=== PATIENT | male | born 1945 | race Two or more races ===

== ENCOUNTER → 2024-08-18 | Outpatient (CLI) | payer MEDICARE, MEDICAID, SELFPAY ==
[2024-08-18 17:34] LABS: B-Type Natriuretic Peptide 112 pg/mL (0-100)
[2024-08-18 17:35] LABS: Alanine Aminotransferase 27 U/L (10-49); Albumin, Serum 4.2 gm/dL (3.4-4.8); Albumin/Globulin Ratio 1.4 (1.2-2.2); Alkaline Phosphatase 207 U/L (46-116); Anion Gap 9 (7-16); Aspartate Amino Transferase 33 U/L (0-34); BUN/Creatinine Ratio 13 Ratio (12-20); Bilirubin,Total 0.3 mg/dL (0.3-1.2); Blood Urea Nitrogen 12 mg/dL (9-23); Calcium 9.2 mg/dL (8.3-10.6); Calcium (Corrected) 9.2 mg/dL (8.5-10.1); Carbon Dioxide 20.6 mMol/L (20.0-31.0); Chloride 100 mMol/L (98-107); Creatinine (Component) 0.9 mg/dL (0.6-1.3); Globulin 3.1 gm/dL (2.3-3.5); Glucose 82 mg/dL (74-106); Magnesium 1.7 mg/dL (1.6-2.6); Osmolality,Calculated 259 (275-295); Potassium 4.8 mMol/L (3.4-5.1); Sodium 130 mMol/L (136-145); Total Protein 7.3 gm/dL (5.7-8.2); eGFR > 60 See Note
== END | disposition home or self-care (01) ==
PROVIDERS: PCP Family Medicine; Referring Provider Internal Medicine Cardiovascular Disease; Visit Provider Internal Medicine Cardiovascular Disease
DX: I50.33 Acute on chronic diastolic (congestive) heart failure (principal)
CPT/HCPCS: 36415; 80053; 83735; 83880

== ENCOUNTER 2024-12-15 18:25 | Emergency (ER) | payer MEDICARE, MEDICAID, SELFPAY ==
[2024-12-15 18:26] VITALS: BMI 25.8
[2024-12-15 18:47] VITALS: BP 127/80; PULSE 102; RESP 20; TEMP 36.9; O2SAT 97
--- NOTE | 2024-12-15 18:51 | EKG_ITS ---
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
--- NOTE | 2024-12-15 18:51 | XR_ITS ---
Examination: AP chest single view TECHNIQUE: AP portable sitting chest single view Date and time: December 15, 2024 1914 hours Comparison June 11, 2024 INDICATIONS: Coughing 2 weeks. FINDINGS: Early pneumonia left base retrocardiac Normal heart size Right lung clear IMPRESSION: Early pneumonia left base
--- NOTE | 2024-12-15 18:52 | PD.EDRME ---
Rapid Medical Screening Exam [facility] Arrival date/time: 12/15/24 18:25 Chief Complaint: Flu Like Symptoms Vital signs: Vital Signs Temperature 98.5 F 12/15/24 18:47 Pulse Rate 102 H 12/15/24 18:47 Respiratory Rate 20 12/15/24 18:47 Blood Pressure 127/80 12/15/24 18:47 Pulse Oximetry (%) 97 12/15/24 18:47 Oxygen Delivery Method Room Air 12/15/24 18:47 [facility] Narrative: Congestion, cough, body aches, chest pain x 2 weeks
[2024-12-15 19:33] LABS: Basophils # (Auto) 0.1 Thou/mm3 (0.0-0.2); Basophils % (Auto) 1 % (0-2.5); Eosinophils # (Auto) 0.2 Thou/mm3 (0.0-0.5); Eosinophils % (Auto) 3 % (0-10); Hematocrit 31.7 % (41.0-53.0); Hemoglobin 10.6 g/dL (13.5-16.0); Immature Granulocytes % (Auto) 1 % (0-0); Immature Granulocytes Auto 0.05 Thou/mm3 (0.00-0.00); Lymphocytes % (Auto) 12 % (10-50); Mean Corpuscular HGB Conc 33.4 g/dl (31.0-37.0); Mean Corpuscular Hemoglobin 23.7 pg (25.0-35.0); Mean Corpuscular Volume 71 fL (80-100); Monocytes # (Auto) 0.8 Thou/mm3 (0.0-0.8); Monocytes % (Auto) 10 % (0-12); Neutrophils # (Auto) 5.7 Thou/mm3 (1.8-7.7); Neutrophils % (Auto) 73 % (37-80); Nucleated Red Blood Cell % 0 /100 WBC (0); Platelet Count 373 Thou/mm3 (140-440); RDW Standard Deviation 48.5 fL (35.1-43.9); Red Blood Count 4.48 Miln/mm3 (4.50-5.90); White Blood Count 7.8 Thou/mm3 (3.8-10.6)
[2024-12-15 19:46] LABS: B-Type Natriuretic Peptide 68 pg/mL (0-100)
[2024-12-15 20:04] LABS: Alanine Aminotransferase 14 U/L (10-49); Albumin, Serum 4.1 gm/dL (3.4-4.8); Albumin/Globulin Ratio 1.4 (1.2-2.2); Alkaline Phosphatase 205 U/L (46-116); Anion Gap 11 (7-16); Aspartate Amino Transferase 22 U/L (0-34); BUN/Creatinine Ratio 9 Ratio (12-20); Bilirubin,Total 0.3 mg/dL (0.3-1.2); Blood Urea Nitrogen 9 mg/dL (9-23); Calcium 9.2 mg/dL (8.3-10.6); Calcium (Corrected) 9.2 mg/dL (8.5-10.1); Carbon Dioxide 19.4 mMol/L (20.0-31.0); Chloride 98 mMol/L (98-107); Estimated Creatinine Clearance 59.9 mL/min (>60); Globulin 2.9 gm/dL (2.3-3.5); Glucose 119 mg/dL (74-106); Osmolality,Calculated 256 (275-295); Potassium 3.8 mMol/L (3.4-5.1); Sodium 128 mMol/L (136-145); Troponin I < 0.020 ng/mL (0.0-0.045); eGFR > 60 See Note
[2024-12-15 23:45] VITALS: BP 108/70; PULSE 101; RESP 18; O2SAT 99
--- NOTE | 2024-12-16 00:02 | PD.EDURI ---
Upper Respiratory Inf. RME/HPI General Chief Complaint: Flu Like Symptoms Stated Complaint: CHEST PAIN X4 DAYS WITH COUGH & FEVER Time Seen by Provider: 12/15/24 18:53 Arrival date/time: 12/15/24 18:25 RME / HPI RME / HPI Narrative: Congestion, cough, body aches, chest pain x 2 weeks [address]. Ocampo?s Main ED Evaluation: 79yo male presents to the ED for complaints of fever, cough, and sharp back pain. 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 Patient has had his symptoms for the last 2 weeks per daughter. Also complains of chronic abdominal cramping. Patient denies any N/V/D, constipation, chest pain or any other associated symptoms. Related Data Home Medications ?Medication ?Instructions ?Recorded ?Confirmed aspirin 81 mg tablet,delayed 81 mg PO QDAY 04/28/21 06/10/24 release (Cortes Low Dose Aspirin) furosemide 20 mg tablet 20 mg PO DAILY 06/21/22 06/10/24 megestrol 400 mg/10 mL (40 mg/mL) 40 mg PO DAILY 08/31/22 06/10/24 oral suspension duloxetine 20 mg capsule,delayed 20 mg PO HS 05/19/24 06/10/24 release famotidine 40 mg tablet 40 mg PO DAILY 05/19/24 06/10/24 pregabalin 50 mg capsule 50 mg PO BID 05/19/24 06/10/24 sucralfate 1 gram tablet 1 g PO BID 05/19/24 06/10/24 ferrous sulfate 325 mg (65 mg 325 mg PO BID 06/10/24 06/10/24 iron) tablet metoclopramide HCl 10 mg tablet 10 mg PO TID PRN Nausea And 06/10/24 06/10/24 Vomiting rosuvastatin 5 mg tablet 5 mg PO QDAY 06/10/24 06/10/24 Previous Rx's ?Medication ?Instructions ?Recorded acetaminophen 500 mg tablet 1,000 mg (2 x 500 mg) PO Q6H PRN 12/16/24 fever or pain #30 tabs azithromycin 250 mg tablet 250 mg PO QDAY Community-acquired 12/16/24 (Zithromax) pneumonia 4 days #4 tabs dicyclomine 10 mg capsule 10 mg PO BID PRN Abdominal cramps 12/16/24 #14 caps Allergies Allergy/AdvReac Type Severity Reaction Status Date / Time No Known Allergies Allergy Verified 12/15/24 18:29 Review of Systems Review of Systems Systems Reviewed: All systems reviewed, normal except as documented Past Medical History Past Medical History NEUROLOGIC: Negative Neurological Disorders, Cerebrovascular Accident, Transient Ischemic Attacks (TIA), Dementia, Alzheimer's Disease, Parkinson's Disease, Brain Tumor, Meningitis, Seizures, Epilepsy, Multiple Sclerosis, Cerebral Palsy, Amyotrophic Lateral Sclerosis (ALS/Florence Gehrig's), Guillain-[place] Syndrome, Spina Bifida, Paralysis, Peripheral Neuropathy, Bauman's Palsy, Subdural Hematoma, Migraine, Head Trauma, Spinal Cord Injury or Traumatic Brain Injury CARDIAC: Positive Hypertension and Hypotension; Negative Cardiac Disorders or Congestive Heart Failure RESPIRATORY: Positive Bronchitis and Pneumonia; Negative Chronic Obstructive Pulmonary Disease (COPD), Asthma or Sleep Apnea GASTROINTESTINAL: Positive Gastrointestinal Disorders, Colitis, Ulcerative Colitis and Gastroesophageal Reflux Disease; Negative Hepatitis GENITOURINARY: Negative Genitourinary Disorders or Renal Disease REPRODUCTIVE: Negative Breast Cancer MUSCULOSKELETAL: Positive Musculoskeletal Disorders and Arthritis ENT: Positive Cataracts; Negative Head Trauma ENDOCRINE: Positive Endocrine Disorders and Diabetes Mellitus Type 2 (Pt reports that he does not take any med for DM); Negative Diabetes Mellitus Type 1 HEMATOLOGIC: Positive Anemia; Negative Blood Disorders or Sickle Cell Disease OTHER HISTORY: Positive Hospitalization; Negative Autoimmune Disease, Shingles, Falls, Blood Transfusions, Anesthesia Reactions, Organ Transplant, Chemotherapy, Radiation Therapy, MRSA, Clostridium Difficile, Cancer or Breast Cancer Family History FAMILY HISTORY: Negative Family Psychiatric Problems, Family Respiratory Disorders, Family Cardiac Disorders, Family Gastrointestinal Problems, Family Cancer, Family Surgery or Family Anesthesia Reaction Surgical History SURGICAL: Negative Cardiac Surgery, Endocrine Surgery, Ear Surgery, Abdominal Surgery, Nephrectomy, Joint Replacement, Neurologic Surgery, Mastectomy, Vasectomy or Organ Transplant Social History SMOKING STATUS: Light (< 1 pack/day) SECOND HAND EXPOSURE: No SUBSTANCE USE: does not use ED Exam Narrative Physical exam: GENERAL APPEARANCE: alert and oriented x 4, well-developed, well-nourished, no acute distress VITALS: All vitals were reviewed and the pulse ox is 99% on room air, which is normal according to my interpretation. HEENT: Normocephalic, atraumatic; pupils equal, round, reactive to light; EOMI; mucous membranes pink, moist; oropharynx clear NECK: Supple LUNGS: CTABL; no wheezes, no rales, no rhonchi HEART: Regular rate, regular rhythm; normal S1, S2; no murmurs ABDOMEN: non distended; normal BS; soft, no tenderness, no guarding, no rebound; no masses, no organomegaly, no hernia BACK: no CVA tenderness EXTREMITIES: atraumatic; no edema NEUROLOGIC: awake; alert and oriented x4; cranial nerves II-XII grossly intact; no focal sensory or motor deficits PSYCHIATRIC: appropriate mood and affect SKIN: warm, dry, normal color; no rashes Course Quality Measures none Orders Category Date Time Status Bedside COVID-19 Antigen Test NOW Care 12/15/24 18:51 Active Bedside Influenza A&B Antigen Test NOW Care 12/15/24 18:52 Completed EKG (ED ONLY) *Do not use* NOW Care 12/15/24 18:51 Completed CXR [XR chest 1V] Stat Exams 12/15/24 18:51 Completed EKG (ED Only) Stat Exams 12/15/24 18:51 Draft BNP [B-Type Natriuretic Peptide] Stat Lab 12/15/24 19:11 Completed CBC Stat Lab 12/15/24 19:11 Completed CMP [Comprehensive Metabolic Panel] Stat Lab 12/15/24 19:11 Completed Troponin I Stat Lab 12/15/24 19:11 Completed Azithromycin Po [Zithromax PO] Med 12/16/24 00:10 Discontinued 500 mg PO X1 ONE HYDROcodone*/APAP 5/325 [[place] 5/325] Med 12/16/24 00:21 Discontinued 1 tab PO X1 ONE Vital Signs Vital signs: Vital Signs Temperature 98.5 F 12/15/24 18:47 Pulse Rate 102 H 12/15/24 18:47 Respiratory Rate 20 12/15/24 18:47 Blood Pressure 127/80 12/15/24 18:47 Pulse Oximetry (%) 97 12/15/24 18:47 Oxygen Delivery Method Room Air 12/15/24 18:47 Upper Respiratory Infection MDM Narrative MDM Narrative:: Scribe Attestation: 12/16/24 Steph Duenas am scribing for and in the presence of Dr. Ocampo. Patient data External records reviewed:: [facility] previous records (Per chart review, patient was admitted here on 06/20/24 for acute dehydration.) Clinical information provided by:: patient Social determinants that could affect healthcare access:: none Patient has the following chronic illnesses:: HTN, GERD How is presenting disease/condition affected by chronic disease/condition?: uneffected by Evaluation data The following diagnostics were reviewed and interpreted by me:: lab results, radiology exam(s) and EKG tracing(s) Lab and/or radiology exams considered but not ordered:: none Interpretation Summary: Bedside COVID and Influenza are negative, CBC is normal, Sodium is 128, Glucose is 119, Troponin is normal, BNP is normal, according to my interpretation. EKG done at 1855, NSR with arrhythmia, rate of 93, left axis deviation, PACs, no acute ischemia, according to my interpretation. [facility] Report Signed Patient: FRIDA HERNANDEZ Record#: [id number] Birthdate: 1945 Age/Sex: 79 / M Location: [facility] Attending Dr: Ordering Physician: Hair Raza PA-C Date of Service: 12/15/24 Procedure(s): XR chest 1V Accession Number(s): [id number] cc: Praful Lopez MD; Mikael Peacock MD; Hair Raza PA-C~ Examination: AP chest single view TECHNIQUE: AP portable sitting chest single view Date and time: December 15, 2024 1914 hours Comparison June 11, 2024 INDICATIONS: Coughing 2 weeks. FINDINGS: Early pneumonia left base retrocardiac Normal heart size Right lung clear IMPRESSION: Early pneumonia left base Dictated By: Mikael Peacock MD Signed By: <Electronically signed by Mikael Peacock MD in OV> 12/15/247 Medications / Prescriptions Medications or Prescriptions considered but not ordered:: none Medication administrations:: Medication Administration History Discontinued Medications Hydrocodone Bitart/Acetaminophen (Hydrocodone/Apap 5/325 Tablet) 1 tab PO X1 ONE Stop: 12/16/24 00:22 Last Admin: 12/16/24 00:36 Dose: 1 tab Documented By: KF Azithromycin (Azithromycin 250 Mg Tablet) 500 mg PO X1 ONE Stop: 12/16/24 00:11 Last Admin: 12/16/24 00:21 Dose: 500 mg Documented By: JORGE LUIS see above Consultations Consultation(s) initiated? (list below): No Diagnosis Upper Respiratory Differential Diagnosis: upper respiratory infection, viral infection, influenza and other (pneumonia) Most likely diagnosis given after review of the tests above:: see clinical impression below Admission Indicated Admission indicated?: not indicated Admission Request Was there a request for admission?: No Disposition Plan Disposition Plan: Discharge Discharge Attestation Discharge Attestation: The patient and all family members were given an opportunity to ask questions and understood the discharge instructions. Discharge instructions specifically effects, indications for sooner follow up or return to the emergency department, and the expected course of current diagnosis. Patient condition: Stable Discharge Plan Plan Patient Disposition: HOME (Self Care) Discharge Disposition comment: Stable for discharge home Patient condition on transfer: Stable Prescriptions/Referrals Prescriptions/Med Rec: New azithromycin [Zithromax] 250 mg tablet 250 mg PO QDAY 4 Days Qty: 4 0RF Rx Instructions: Take 1 tab every day for 4 days starting on Sunday 12/17 dicyclomine 10 mg capsule 10 mg PO BID PRN (Reason: Abdominal cramps) Qty: 14 0RF acetaminophen 500 mg tablet 1,000 mg PO Q6H PRN (Reason: fever or pain) Qty: 30 0RF No Action aspirin [Cortes Low Dose Aspirin] 81 mg Tablet,Delayed Release (Dr/Ec) 81 mg PO QDAY megestrol 400 mg/10 mL (40 mg/mL) suspension 40 mg PO DAILY Patient Comments: TOME 10MLS POR VIA ORAL DIARIO sucralfate 1 gram tablet 1 g PO BID Patient Comments: TOME 1 TABLETA POR V A ORAL DOS VECES AL D A EN EST TRIPP VAC O FOR 30 DAYS famotidine 40 mg tablet 40 mg PO DAILY Patient Comments: TOME 1 TABLETA POR V A ORAL TODOS LOS D FOR 30 DAYS duloxetine 20 mg capsule,delayed release(DR/EC) 20 mg PO HS Patient Comments: TOME 1 C PSULA POR V A ORAL TODOS LOS D AL ACOSTARSE POR 30 LEWIS pregabalin 50 mg capsule 50 mg PO BID Patient Comments: TOME 1 C PSULA POR V A ORAL TODOS LOS D metoclopramide HCl 10 mg tablet 10 mg PO TID PRN (Reason: Nausea And Vomiting) Patient Comments: TOME 1 TABLETA POR V A ORAL AJAY VECES AL D A CUANDO SEA NECESARIO PARA LAS N USEAS rosuvastatin 5 mg tablet 5 mg PO QDAY Patient Comments: TOME 1 TABLETA POR V A ORAL TODOS LOS D FOR 90 DAYS ferrous sulfate 325 mg (65 mg iron) tablet 325 mg PO BID furosemide 20 mg tablet 20 mg PO DAILY Patient Comments: TOME IRENE TABLETA TODOS LOS D FOR 30 DAYS Rx Instructions: for 30 days dispense on 06/04/22 Referrals: Praful Lopez MD [Primary Care Provider] - In 1 week Problem List Clinical Impression: Community acquired pneumonia, Abdominal cramping Patient/Caregiver Discharge Instructions Discharge Activity: activity as tolerated Education Materials: ED Pneumonia (Adult) Additional Instructions: Please return to the emergency department for any worsening or any further medical problems and we will help you. Otherwise you should follow-up with your primary care doctor within the next several days There are antibiotics waiting for you at the pharmacy. You should take 1 tab every day for 4 days in a row starting on 12/17/2024 Print Language: Burkinan Stand Alone Forms: Carly Award Info., Patient Portal Info Letter
[2024-12-16] MEDS: AZITHROMYCIN 250 MG TABLET 500 MG PO (00:21)
[2024-12-16] MEDS: HYDROcodone/APAP 5/325 TABLET 1 TAB PO (00:36)
== END 2024-12-16 00:40 | disposition home or self-care (01) ==
PROVIDERS: Physician Assistant; Emergency Provider Emergency Medicine; PCP Family Medicine
DX: J18.9 Pneumonia, unspecified organism (principal); R10.9 Unspecified abdominal pain; I49.1 Atrial premature depolarization; I10 Essential (primary) hypertension
CPT/HCPCS: 36415; 71045; 80053; 83880; 84484; 85025; 87400; 87811; 93005; 99283; A9270

== ENCOUNTER → 2025-01-07 | Outpatient (CLI) | payer MEDICARE, MEDICAID, SELFPAY ==
[2025-01-07 17:44] LABS: Clostridium Difficile PCR Negative (Negative)
== END | disposition home or self-care (01) ==
LOC: SLDO 13:54
PROVIDERS: Referring Provider Internal Medicine Gastroenterology; Visit Provider Internal Medicine Gastroenterology
DX: R19.7 Diarrhea, unspecified (principal)
CPT/HCPCS: 87493

== ENCOUNTER 2025-05-10 17:16 | Emergency (ER) | payer MEDICARE, MEDICAID, SELFPAY ==
[2025-05-10 17:17] VITALS: BP 158/82; PULSE 114; RESP 18; TEMP 36.5; O2SAT 98
[2025-05-10 17:19] VITALS: BMI 25.7
--- NOTE | 2025-05-10 17:23 | EKG_ITS ---
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
[2025-05-10 17:26] VITALS: PULSE 78; RESP 16; O2SAT 98
--- NOTE | 2025-05-10 17:29 | PD.EDADULT ---
ED General RME/HPI General Chief complaint: General Adult/Misc Complain Stated complaint: DIABETIC ISSUE Time Seen by Provider: 05/10/25 17:22 Arrival date/time: 05/10/25 17:16 CC: Hypoglycemia HPI patient presents to the ER via EMS report blood glucose in the low 20s by family, the patient was given chocolate cake and orange juice, EMS said the initial Accu-Chek was 99. Currently the patient's Accu-Chek is 31. 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 Patient is complaining of generalized bodyaches that have been bad for months but worse in the last 2 days. Patient is slow to respond to questions but does eventually respond appropriately. Related Data Home Medications ?Medication ?Instructions ?Recorded ?Confirmed aspirin 81 mg tablet,delayed 81 mg PO QDAY 04/28/21 06/10/24 release (Cortes Low Dose Aspirin) furosemide 20 mg tablet 20 mg PO DAILY 06/21/22 06/10/24 megestrol 400 mg/10 mL (40 mg/mL) 40 mg PO DAILY 08/31/22 06/10/24 oral suspension duloxetine 20 mg capsule,delayed 20 mg PO HS 05/19/24 06/10/24 release famotidine 40 mg tablet 40 mg PO DAILY 05/19/24 06/10/24 pregabalin 50 mg capsule 50 mg PO BID 05/19/24 06/10/24 sucralfate 1 gram tablet 1 g PO BID 05/19/24 06/10/24 ferrous sulfate 325 mg (65 mg 325 mg PO BID 06/10/24 06/10/24 iron) tablet metoclopramide HCl 10 mg tablet 10 mg PO TID PRN Nausea And 06/10/24 06/10/24 Vomiting rosuvastatin 5 mg tablet 5 mg PO QDAY 06/10/24 06/10/24 Previous Rx's ?Medication ?Instructions ?Recorded acetaminophen 500 mg tablet 1,000 mg (2 x 500 mg) PO Q6H PRN 12/16/24 fever or pain #30 tabs dicyclomine 10 mg capsule 10 mg PO BID PRN Abdominal cramps 12/16/24 #14 caps Allergies Allergy/AdvReac Type Severity Reaction Status Date / Time No Known Allergies Allergy Verified 12/15/24 18:29 Review of Systems Review of Systems ROS Unobtainable: unobtainable due to mental status Past Medical History Past Medical History NEUROLOGIC: Negative Neurological Disorders, Cerebrovascular Accident, Transient Ischemic Attacks (TIA), Dementia, Alzheimer's Disease, Parkinson's Disease, Brain Tumor, Meningitis, Seizures, Epilepsy, Multiple Sclerosis, Cerebral Palsy, Amyotrophic Lateral Sclerosis (ALS/Florence Gehrig's), Guillain-[place] Syndrome, Spina Bifida, Paralysis, Peripheral Neuropathy, Bauman's Palsy, Subdural Hematoma, Migraine, Head Trauma, Spinal Cord Injury or Traumatic Brain Injury CARDIAC: Positive Hypertension and Hypotension; Negative Cardiac Disorders or Congestive Heart Failure RESPIRATORY: Positive Bronchitis and Pneumonia; Negative Chronic Obstructive Pulmonary Disease (COPD), Asthma or Sleep Apnea GASTROINTESTINAL: Positive Gastrointestinal Disorders, Colitis, Ulcerative Colitis and Gastroesophageal Reflux Disease; Negative Hepatitis GENITOURINARY: Negative Genitourinary Disorders or Renal Disease REPRODUCTIVE: Negative Breast Cancer MUSCULOSKELETAL: Positive Musculoskeletal Disorders and Arthritis ENT: Positive Cataracts; Negative Head Trauma ENDOCRINE: Positive Endocrine Disorders and Diabetes Mellitus Type 2 (Pt reports that he does not take any med for DM); Negative Diabetes Mellitus Type 1 HEMATOLOGIC: Positive Anemia; Negative Blood Disorders or Sickle Cell Disease OTHER HISTORY: Positive Hospitalization; Negative Autoimmune Disease, Shingles, Falls, Blood Transfusions, Anesthesia Reactions, Organ Transplant, Chemotherapy, Radiation Therapy, MRSA, Clostridium Difficile, Cancer or Breast Cancer Family History FAMILY HISTORY: Negative Family Psychiatric Problems, Family Respiratory Disorders, Family Cardiac Disorders, Family Gastrointestinal Problems, Family Cancer, Family Surgery or Family Anesthesia Reaction Surgical History SURGICAL: Negative Cardiac Surgery, Endocrine Surgery, Ear Surgery, Abdominal Surgery, Nephrectomy, Joint Replacement, Neurologic Surgery, Mastectomy, Vasectomy or Organ Transplant Social History SMOKING STATUS: Heavy (> 1 pack/day) SECOND HAND EXPOSURE: No SUBSTANCE USE: does not use ED Exam Narrative Physical exam: [General: Appears not in any acute distress Head normocephalic HEENT: Within acceptable limits Neck is supple nontender Chest equal chest rise nontender to palpation Respiratory: Clear to auscultation no wheezes crackles or rubs CV: Rate rhythm is regular no murmurs rubs or clicks Abdomen is distended secondary to body habitus soft nontender no masses positive bowel sounds all 4 quadrants Back: No CVA tenderness no spinous process tenderness from cervical spine thoracic and lumbar spine Skin: Intact no petechiae rash induration ulceration or crepitus Extremities: Moving all extremity against resistance cap refill less than 2 seconds neurosensory intact Neuro: Awake alert oriented x3 Glascow coma 15 no focal deficits] Course Course Course Narrative: Is noted that the patient has syndrome syndrome and crush syndrome, when we get blood glucose monitoring from his fingertips it is exceedingly low but when they are from peripheral IVs are within acceptable limits. At this time patient will be discharged home with a glucose of 96. Patient is to follow-up with his primary care doctor. Quality Measures none Orders Category Date Time Status EKG (ED ONLY) *Do not use* NOW Care 05/10/25 17:23 Completed Glucose [Bedside Blood Glucose] Q1HR Care 05/10/25 17:22 Completed Saline [Insert IV] NOW Care 05/10/25 17:22 Active EKG (ED Only) Stat Exams 05/10/25 17:23 Draft B-Type Natriuretic Peptide Stat Lab 05/10/25 18:15 Completed CBC Stat Lab 05/10/25 18:15 Completed Comprehensive Metabolic Panel Stat Lab 05/10/25 18:15 Completed Drug Screen,Urine Stat Lab 05/10/25 18:34 Completed Glucose Stat Lab 05/10/25 20:43 Ordered LDH (Lactate Dehydrogenase) Stat Lab 05/10/25 18:15 Completed Magnesium Stat Lab 05/10/25 18:15 Completed Partial Thromboplastin Time Stat Lab 05/10/25 18:57 Completed Prothrombin Time with INR Stat Lab 05/10/25 18:57 Completed Troponin I Stat Lab 05/10/25 18:15 Completed Urinalysis, C/S if Indicated Stat Lab 05/10/25 18:34 Completed Dextrose 50% Syr [D50w Syringe Abboject] Med 05/10/25 17:22 Discontinued 50 ml IVP X1 ONE Vital Signs Vital signs: Vital Signs Temperature 97.7 F 05/10/25 17:17 Pulse Rate 114 H 05/10/25 17:17 Respiratory Rate 18 05/10/25 17:17 Blood Pressure 158/82 H 05/10/25 17:17 Pulse Oximetry (%) 98 05/10/25 17:17 Oxygen Delivery Method Room Air 05/10/25 17:17 Discharge Plan Plan Patient Disposition: HOME (Self Care) Patient condition on transfer: Stable Prescriptions/Referrals Prescriptions/Med Rec: No Action aspirin [Cortes Low Dose Aspirin] 81 mg Tablet,Delayed Release (Dr/Ec) 81 mg PO QDAY megestrol 400 mg/10 mL (40 mg/mL) suspension 40 mg PO DAILY Patient Comments: TOME 10MLS POR VIA ORAL DIARIO sucralfate 1 gram tablet 1 g PO BID Patient Comments: TOME 1 TABLETA POR V A ORAL DOS VECES AL D A EN EST TRIPP VAC O FOR 30 DAYS famotidine 40 mg tablet 40 mg PO DAILY Patient Comments: TOME 1 TABLETA POR V A ORAL TODOS LOS D FOR 30 DAYS duloxetine 20 mg capsule,delayed release(DR/EC) 20 mg PO HS Patient Comments: TOME 1 C PSULA POR V A ORAL TODOS LOS D AL ACOSTARSE POR 30 LEWIS pregabalin 50 mg capsule 50 mg PO BID Patient Comments: TOME 1 C PSULA POR V A ORAL TODOS LOS D metoclopramide HCl 10 mg tablet 10 mg PO TID PRN (Reason: Nausea And Vomiting) Patient Comments: TOME 1 TABLETA POR V A ORAL AJAY VECES AL D A CUANDO SEA NECESARIO PARA LAS N USEAS rosuvastatin 5 mg tablet 5 mg PO QDAY Patient Comments: TOME 1 TABLETA POR V A ORAL TODOS LOS D FOR 90 DAYS ferrous sulfate 325 mg (65 mg iron) tablet 325 mg PO BID furosemide 20 mg tablet 20 mg PO DAILY Patient Comments: TOME IRENE TABLETA TODOS LOS D FOR 30 DAYS Rx Instructions: for 30 days dispense on 06/04/22 dicyclomine 10 mg capsule 10 mg PO BID PRN (Reason: Abdominal cramps) Qty: 14 0RF acetaminophen 500 mg tablet 1,000 mg PO Q6H PRN (Reason: fever or pain) Qty: 30 0RF Referrals: Praful Lopez MD [Primary Care Provider, Family Practice] - In 1 week Problem List Clinical Impression: Hypoglycemia Patient/Caregiver Discharge Instructions Education Materials: How to Check Your Blood Sugar Additional Instructions: Blood sugars from your fingertips will be inaccurately low follow-up with your primary care doctor. Print Language: Romanian Stand Alone Forms: Carly Award Info., Work/School Release, Patient Portal Info Letter PA/RUG LAYER Supervising Physician PA/RUG LAYER Supervising Physician: Zak PARKERP MDM EKG Interpretation EKG #1: EKG Interpretation: EKG performed at 1736 shows a ventricular rate of 64 VA interval 141 QRS of 80 QTc of 381 sinus rhythm minimal baseline wander in aVF and 3. Labs Lab(s) Interpretation(s): CBC shows no leukocytosis H&H of 12.4 and 39.1 respectively no thrombocytopenia Coags within acceptable limits Sodium 129 potassium at 5.5 glucose at 72 no other electrolyte imbalances renal impairment mild transaminitis T. bili at 0.2. Troponin unremarkable BNP at 154. Urine is unremarkable for any acute infection UDS is negative. Imaging Imaging interpretation: none Medication Administration(s) Medication Administration History Discontinued Medications Dextrose (Dextrose 50%-Water Inj 50 Ml Syringe) 50 ml IVP X1 ONE Stop: 05/10/25 17:23 Last Admin: 05/10/25 18:58 Dose: Not Given Documented By: DB Non-Admin Reason: Change of Condition
--- NOTE | 2025-05-10 17:45 | PC.NURSE ---
UNABLE TO GET A IV AT THIS TIME, PT IS STILL A GCS 15, A&O X 4, PT WAS GIVEN ORANGE JUICE, PT GLUCOSE IS NOW 91MG/dL
[2025-05-10 18:20] VITALS: BP 163/90; PULSE 69; RESP 20; TEMP 36.6; O2SAT 94
[2025-05-10 18:24] LABS: Basophils # (Auto) 0.1 Thou/mm3 (0.0-0.2); Basophils % (Auto) 1 % (0-2.5); Eosinophils # (Auto) 0.3 Thou/mm3 (0.0-0.5); Eosinophils % (Auto) 3 % (0-10); Hematocrit 39.1 % (41.0-53.0); Hemoglobin 12.4 g/dL (13.5-16.0); Immature Granulocytes Auto 0.12 Thou/mm3 (0.00-0.00); Lymphocytes # (Auto) 1.7 Thou/mm3 (1.0-4.8); Lymphocytes % (Auto) 16 % (10-50); Mean Corpuscular HGB Conc 31.7 g/dl (31.0-37.0); Mean Corpuscular Hemoglobin 24.2 pg (25.0-35.0); Mean Corpuscular Volume 76 fL (80-100); Monocytes # (Auto) 0.9 Thou/mm3 (0.0-0.8); Monocytes % (Auto) 9 % (0-12); Neutrophils # (Auto) 7.4 Thou/mm3 (1.8-7.7); Neutrophils % (Auto) 71 % (37-80); Nucleated Red Blood Cell # 0.00 Thou/mm3 (0.00-0.00); Nucleated Red Blood Cell % 0 /100 WBC (0); Platelet Count 241 Thou/mm3 (140-440); RDW Standard Deviation 55.6 fL (35.1-43.9); Red Blood Count 5.13 Miln/mm3 (4.50-5.90); White Blood Count 10.4 Thou/mm3 (3.8-10.6)
[2025-05-10 18:41] LABS: Collection Type, Urine Clean Catch
[2025-05-10 18:47] LABS: Bilirubin,Urine Negative (Negative); Blood,Urine Negative (Negative); Clarity,Urine Clear (Clear/Hazy); Color,Urine Colorless (Lt Yel-Yel); Culture Indicated,Urine Not Indicated; Glucose, Urine Negative (Negative); Ketones,Urine Negative (Negative); Leukocyte Esterase,Urine Negative (Negative); Nitrite,Urine Negative (Negative); PH,Urine 6.5 (5.0-7.0); Protein,Urine Negative (Neg - Trace); RBC,Urine 2 /hpf (0-3); Specific Gravity,Urine 1.010 (1.001-1.035); Squamous Epithelial Cell,Urine < 1 /hpf (0-5); Urobilinogen,Urine Negative mg/dL (0.0-1.0); WBC,Urine < 1 /hpf (0-5)
[2025-05-10 18:59] LABS: B-Type Natriuretic Peptide 154 pg/mL (0-100)
[2025-05-10 19:19] LABS: INR 1.0 (0.9-1.3); Partial Thromboplastin Time 28.2 Seconds (22.0-36.0); Prothrombin Time 10.9 Seconds (9.0-12.2)
[2025-05-10 19:22] LABS: Alanine Aminotransferase 50 U/L (10-49); Albumin, Serum 4.7 gm/dL (3.4-4.8); Albumin/Globulin Ratio 1.6 (1.2-2.2); Alkaline Phosphatase 126 U/L (46-116); Anion Gap 11 (7-16); Aspartate Amino Transferase 41 U/L (0-34); BUN/Creatinine Ratio 20 Ratio (12-20); Bilirubin,Total 0.2 mg/dL (0.3-1.2); Blood Urea Nitrogen 22 mg/dL (9-23); Calcium 9.4 mg/dL (8.3-10.6); Calcium (Corrected) 9.4 mg/dL (8.5-10.1); Carbon Dioxide 20.3 mMol/L (20.0-31.0); Chloride 98 mMol/L (98-107); Creatinine (Component) 1.1 mg/dL (0.6-1.3); Estimated Creatinine Clearance 48.1 mL/min (>60); Globulin 3.0 gm/dL (2.3-3.5); Glucose 72 mg/dL (74-106); Magnesium 2.3 mg/dL (1.6-2.6); Osmolality,Calculated 261 (275-295); Potassium 5.5 mMol/L (3.4-5.1); Sodium 129 mMol/L (136-145); Total Protein 7.7 gm/dL (5.7-8.2); Troponin I < 0.020 ng/mL (0.0-0.045); eGFR > 60 See Note
[2025-05-10 19:26] LABS: Amphetamine/Methamp Scrn,U Negative (Negative); Barbiturate Screen,Urine Negative (Negative); Benzodiazepines Screen,Urine Negative (Negative); Benzoylecgonine Screen, Ur Negative (Negative); Fentanyl Screen,Urine Negative (Negative); Opiate Screen,Urine Negative (Negative); THC Screen,Urine Negative (Negative)
[2025-05-10 19:33] LABS: LDH (Lactate Dehydrogenase) 278 U/L (120-246)
== END 2025-05-10 21:54 | disposition home or self-care (01) ==
PROVIDERS: Registered Nurse General Practice; Emergency Provider Family Medicine; PCP Family Medicine
DX: E11.649 Type 2 diabetes mellitus with hypoglycemia without coma (principal)
CPT/HCPCS: 36415; 80053; 80307; 81001; 82947; 83615; 83735; 83880; 84484; 85025; 85610; 85730; 93005; 99283

== ENCOUNTER 2025-07-09 19:31 | Emergency (ER) | payer MEDICARE, MEDICAID, SELFPAY ==
[2025-07-09 19:32] VITALS: BMI 24.7
[2025-07-09 20:05] VITALS: BP 142/85; PULSE 94; RESP 18; TEMP 37; O2SAT 95
--- NOTE | 2025-07-09 20:09 | XR_ITS ---
EXAMINATION: AP chest single view TECHNIQUE: AP portable upright chest single view Date and time: July 09, 2025, 2037 hours INDICATIONS: Shortness of breath chest pain today. FINDINGS: Mild enlargement cardiac contour Mild elevation right hemidiaphragm. Mild vascular congestion. No lobar pneumonia or pulmonary edema IMPRESSION: Mild vascular congestion
[2025-07-09] MEDS: ACETAMINOPHEN 500 MG TABLET 1000 MG PO (20:32)
[2025-07-09 20:41] LABS: Lactate (Lactic Acid) 1.4 mMol/L (0.4-2.0)
[2025-07-09 20:48] LABS: Basophils # (Auto) 0.1 Thou/mm3 (0.0-0.2); Basophils % (Auto) 1 % (0-2.5); Eosinophils # (Auto) 0.2 Thou/mm3 (0.0-0.5); Eosinophils % (Auto) 2 % (0-10); Hematocrit 31.5 % (41.0-53.0); Hemoglobin 10.2 g/dL (13.5-16.0); Immature Granulocytes Auto 0.22 Thou/mm3 (0.00-0.00); Lymphocytes # (Auto) 1.2 Thou/mm3 (1.0-4.8); Lymphocytes % (Auto) 9 % (10-50); Mean Corpuscular HGB Conc 32.4 g/dl (31.0-37.0); Mean Corpuscular Hemoglobin 23.4 pg (25.0-35.0); Mean Corpuscular Volume 72 fL (80-100); Monocytes # (Auto) 1.2 Thou/mm3 (0.0-0.8); Monocytes % (Auto) 10 % (0-12); Neutrophils # (Auto) 9.6 Thou/mm3 (1.8-7.7); Neutrophils % (Auto) 77 % (37-80); Nucleated Red Blood Cell # 0.00 Thou/mm3 (0.00-0.00); Nucleated Red Blood Cell % 0 /100 WBC (0); Platelet Count 446 Thou/mm3 (140-440); RDW Standard Deviation 44.5 fL (35.1-43.9); Red Blood Count 4.35 Miln/mm3 (4.50-5.90); White Blood Count 12.4 Thou/mm3 (3.8-10.6)
[2025-07-09 21:05] LABS: Alanine Aminotransferase 26 U/L (10-49); Albumin, Serum 4.4 gm/dL (3.4-4.8); Albumin/Globulin Ratio 1.4 (1.2-2.2); Alkaline Phosphatase 190 U/L (46-116); Anion Gap 10 (7-16); Aspartate Amino Transferase 27 U/L (0-34); BUN/Creatinine Ratio 24 Ratio (12-20); Bilirubin,Total 0.4 mg/dL (0.3-1.2); Blood Urea Nitrogen 22 mg/dL (9-23); Calcium 9.6 mg/dL (8.3-10.6); Calcium (Corrected) 9.6 mg/dL (8.5-10.1); Carbon Dioxide 20.4 mMol/L (20.0-31.0); Chloride 99 mMol/L (98-107); Creatinine (Component) 0.9 mg/dL (0.6-1.3); Estimated Creatinine Clearance 63.2 mL/min (>60); Globulin 3.2 gm/dL (2.3-3.5); Glucose 93 mg/dL (74-106); Osmolality,Calculated 262 (275-295); Potassium 4.2 mMol/L (3.4-5.1); Sodium 129 mMol/L (136-145); Total Protein 7.6 gm/dL (5.7-8.2); Troponin I < 0.020 ng/mL (0.0-0.045); eGFR > 60 See Note
[2025-07-10 00:21] LABS: Collection Type, Urine Clean Catch
[2025-07-10 00:24] LABS: Bilirubin,Urine Negative (Negative); Blood,Urine Negative (Negative); Clarity,Urine Clear (Clear/Hazy); Color,Urine Yellow (Lt Yel-Yel); Glucose, Urine Negative (Negative); Hyaline Casts,Urine 1 /hpf (0-1); Ketones,Urine Negative (Negative); Leukocyte Esterase,Urine Negative (Negative); Nitrite,Urine Negative (Negative); PH,Urine 5.5 (5.0-7.0); Protein,Urine Trace (Neg - Trace); RBC,Urine 1 /hpf (0-3); Specific Gravity,Urine 1.019 (1.001-1.035); Squamous Epithelial Cell,Urine 4 /hpf (0-5); Urobilinogen,Urine Negative mg/dL (0.0-1.0); WBC,Urine 2 /hpf (0-5)
[2025-07-10 00:25] VITALS: BP 140/76; PULSE 98; RESP 18; TEMP 36.9; O2SAT 98
[2025-07-10] MEDS: SODIUM CHLORIDE 0.9% 1000 ML 1,000 ML 999 ML IV (00:33)
--- NOTE | 2025-07-10 00:44 | PD.EDURI ---
Upper Respiratory Inf. RME/HPI General Chief Complaint: Flu Like Symptoms Stated Complaint: BODY ACHES, COUGH, FEELS WEAK Time Seen by Provider: 07/09/25 19:55 Source: patient, family and site interpreter Arrival date/time: 07/09/25 19:31 Mode of arrival: wheelchair Limitations: language barrier RME / HPI RME / HPI Narrative: This patient is a 80-year-old Armenian-speaking only male who was brought in by his for evaluation of generalized bodyaches, weakness and intermittent cough for the past week. states the patient just has been tired and unable to do any activities. denies any fever nausea or vomiting. Patient appears weak and mildly toxic at arrival. Patient was mildly hypertensive at arrival. Related Data Home Medications ?Medication ?Instructions ?Recorded ?Confirmed aspirin 81 mg tablet,delayed 81 mg PO QDAY 04/28/21 06/10/24 release (Cortes Low Dose Aspirin) furosemide 20 mg tablet 20 mg PO DAILY 06/21/22 06/10/24 megestrol 400 mg/10 mL (40 mg/mL) 40 mg PO DAILY 08/31/22 06/10/24 oral suspension duloxetine 20 mg capsule,delayed 20 mg PO HS 05/19/24 06/10/24 release famotidine 40 mg tablet 40 mg PO DAILY 05/19/24 06/10/24 pregabalin 50 mg capsule 50 mg PO BID 05/19/24 06/10/24 sucralfate 1 gram tablet 1 g PO BID 05/19/24 06/10/24 ferrous sulfate 325 mg (65 mg 325 mg PO BID 06/10/24 06/10/24 iron) tablet metoclopramide HCl 10 mg tablet 10 mg PO TID PRN Nausea And 06/10/24 06/10/24 Vomiting rosuvastatin 5 mg tablet 5 mg PO QDAY 06/10/24 06/10/24 Previous Rx's ?Medication ?Instructions ?Recorded acetaminophen 500 mg tablet 1,000 mg (2 x 500 mg) PO Q6H PRN 12/16/24 fever or pain #30 tabs dicyclomine 10 mg capsule 10 mg PO BID PRN Abdominal cramps 12/16/24 #14 caps Allergies Allergy/AdvReac Type Severity Reaction Status Date / Time No Known Allergies Allergy Verified 12/15/24 18:29 Review of Systems Review of Systems Systems Reviewed: All systems reviewed, normal except as documented Past Medical History Past Medical History NEUROLOGIC: Negative Neurological Disorders, Cerebrovascular Accident, Transient Ischemic Attacks (TIA), Dementia, Alzheimer's Disease, Parkinson's Disease, Brain Tumor, Meningitis, Seizures, Epilepsy, Multiple Sclerosis, Cerebral Palsy, Amyotrophic Lateral Sclerosis (ALS/[place]ig's), Guillain-[place] Syndrome, Spina Bifida, Paralysis, Peripheral Neuropathy, Bauman's Palsy, Subdural Hematoma, Migraine, Head Trauma, Spinal Cord Injury or Traumatic Brain Injury CARDIAC: Positive Hypertension and Hypotension; Negative Cardiac Disorders or Congestive Heart Failure RESPIRATORY: Positive Bronchitis and Pneumonia; Negative Chronic Obstructive Pulmonary Disease (COPD), Asthma or Sleep Apnea GASTROINTESTINAL: Positive Gastrointestinal Disorders, Colitis, Ulcerative Colitis and Gastroesophageal Reflux Disease; Negative Hepatitis GENITOURINARY: Negative Genitourinary Disorders or Renal Disease REPRODUCTIVE: Negative Breast Cancer MUSCULOSKELETAL: Positive Musculoskeletal Disorders and Arthritis ENT: Positive Cataracts; Negative Head Trauma ENDOCRINE: Positive Endocrine Disorders and Diabetes Mellitus Type 2; Negative Diabetes Mellitus Type 1 HEMATOLOGIC: Positive Anemia; Negative Blood Disorders or Sickle Cell Disease OTHER HISTORY: Positive Hospitalization; Negative Autoimmune Disease, Shingles, Falls, Blood Transfusions, Anesthesia Reactions, Organ Transplant, Chemotherapy, Radiation Therapy, MRSA, Clostridium Difficile, Cancer or Breast Cancer Family History FAMILY HISTORY: Negative Family Psychiatric Problems, Family Respiratory Disorders, Family Cardiac Disorders, Family Gastrointestinal Problems, Family Cancer, Family Surgery or Family Anesthesia Reaction Surgical History SURGICAL: Negative Cardiac Surgery, Endocrine Surgery, Ear Surgery, Abdominal Surgery, Nephrectomy, Joint Replacement, Neurologic Surgery, Mastectomy, Vasectomy or Organ Transplant Social History SMOKING STATUS: Current every day smoker SECOND HAND EXPOSURE: No SUBSTANCE USE: does not use ED Exam Narrative Physical exam: Patient appears mildly toxic and weak at time of evaluation. General Limitations: Present language barrier General appearance: Present alert and in no apparent distress Head Head exam: Present atraumatic Eye Eye exam: Present normal appearance, PERRL and EOMI ENT ENT exam: Present normal exam, normal oropharynx and mucous membranes moist Neck Neck exam: Present normal inspection, full ROM and trachea midline Chest Chest inspection: Present normal inspection and symmetric chest wall rise Respiratory Respiratory exam: Present normal lung sounds bilaterally and other (Unremarkable auscultation of bilateral lung buckner.) Cardiovascular Cardiovascular exam: Present regular rate, normal rhythm and normal heart sounds Abdominal Exam Abdominal exam: Present soft and normal bowel sounds Extremities Exam Extremities exam: Present normal inspection and full ROM Back Exam Back exam: Present normal inspection and full ROM Neurological Exam Neurological exam: Present alert, oriented X3 and CN II-XII intact Psychiatric Psychiatric exam: Present normal affect and normal mood Skin Skin exam: Present warm, dry, intact and normal color Course Quality Measures none Orders Category Date Time Status Bedside COVID-19 Antigen Test NOW Care 07/09/25 20:08 Active Bedside Influenza A&B Antigen Test NOW Care 07/09/25 20:08 Completed IV [Insert IV] NOW Care 07/10/25 00:20 Active Straight [In and Out Catheter] X1 Care 07/09/25 23:44 Active XR chest 1V portable Stat Exams 07/09/25 20:09 Completed CBC Stat Lab 07/09/25 20:26 Completed CMP [Comprehensive Metabolic Panel] Stat Lab 07/09/25 20:26 Completed Lactate (Lactic Acid) Stat Lab 07/09/25 20:26 Completed Troponin I Stat Lab 07/09/25 20:26 Completed UA [Urinalysis] Stat Lab 07/10/25 00:15 Completed Acetaminophen Tab [Tylenol ES Tab] Med 07/09/25 20:08 Discontinued 1,000 mg PO X1 ONE Sodium Chloride 0.9% 1000 ml [Ns] 1,000 ml Med 07/10/25 00:19 Active IV 999 mls/hr As noted above Vital Signs Vital signs: Vital Signs Temperature 98.6 F 07/09/25 20:05 Pulse Rate 94 07/09/25 20:05 Respiratory Rate 18 07/09/25 20:05 Blood Pressure 142/85 H 07/09/25 20:05 Pulse Oximetry (%) 95 07/09/25 20:05 Oxygen Delivery Method Room Air 07/09/25 20:05 As noted above Upper Respiratory Infection MDM Narrative MDM Narrative:: All studies performed in the ED were evaluated by me personally. Serum studies were unremarkable for any definitive systemic process other than a mild hyponatremic state and nonspecific anemia. Patient was given a 1 L bolus of normal saline before discharge. All other serum studies were unremarkable. Urinalysis is unremarkable for any urinary tract infection. Chest x-ray is unremarkable for any consolidation or intrapulmonary concerns. Patient appears to be suffering from a viral upper respiratory illness. Advised patient to utilize Tylenol and/or Motrin as needed for body concerns. Good hydration and healthy nutrition moving forward. Patient data External records reviewed:: [facility] previous records Clinical information provided by:: patient, family and other (specify) (Insulation Installer) Social determinants that could affect healthcare access:: none Patient has the following chronic illnesses:: None How is presenting disease/condition affected by chronic disease/condition?: no chronic disease Evaluation data The following diagnostics were reviewed and interpreted by me:: lab results and radiology exam(s) Lab and/or radiology exams considered but not ordered:: None Interpretation Summary: Laboratory studies were only remarkable for a mild hyponatremia and anemia. Imaging studies were unremarkable for any acute intrapulmonary concern. Medications / Prescriptions Medications or Prescriptions considered but not ordered:: None Medication administrations:: Medication Administration History Sodium Chloride (Ns) 1,000 mls @ 999 mls/hr IV .Q1H1M ONE Stop: 07/10/25 01:19 Last Admin: 07/10/25 00:33 Dose: 999 mls/hr Documented By: GB Discontinued Medications Acetaminophen (Acetaminophen 500 Mg Tablet) 1,000 mg PO X1 ONE Stop: 07/09/25 20:09 Last Admin: 07/09/25 20:32 Dose: 1,000 mg Documented By: SRIKANTH As noted above Consultations Consultation(s) initiated? (list below): No Diagnosis Upper Respiratory Differential Diagnosis: upper respiratory infection, viral infection, bronchitis and other (Pneumonia, sepsis, left foot abnormality) Most likely diagnosis given after review of the tests above:: Viral upper respiratory illness Admission Indicated Admission indicated?: not indicated Explain why admission is indicated or not indicated:: Unwarranted Admission Request Was there a request for admission?: No Disposition Plan Disposition Plan: Discharge Discharge Attestation Discharge Attestation: The patient and all family members were given an opportunity to ask questions and understood the discharge instructions. Discharge instructions specifically effects, indications for sooner follow up or return to the emergency department, and the expected course of current diagnosis. Patient condition: Stable Discharge Plan Plan Patient Disposition: HOME (Self Care) Prescriptions/Referrals Prescriptions/Med Rec: No Action aspirin [Cortes Low Dose Aspirin] 81 mg Tablet,Delayed Release (Dr/Ec) 81 mg PO QDAY megestrol 400 mg/10 mL (40 mg/mL) suspension 40 mg PO DAILY Patient Comments: TOME 10MLS POR VIA ORAL DIARIO sucralfate 1 gram tablet 1 g PO BID Patient Comments: TOME 1 TABLETA POR V A ORAL DOS VECES AL D A EN EST TRIPP VAC O FOR 30 DAYS famotidine 40 mg tablet 40 mg PO DAILY Patient Comments: TOME 1 TABLETA POR V A ORAL TODOS LOS D FOR 30 DAYS duloxetine 20 mg capsule,delayed release(DR/EC) 20 mg PO HS Patient Comments: TOME 1 C PSULA POR V A ORAL TODOS LOS D AL ACOSTARSE POR 30 ELWIS pregabalin 50 mg capsule 50 mg PO BID Patient Comments: TOME 1 C PSULA POR V A ORAL TODOS LOS D metoclopramide HCl 10 mg tablet 10 mg PO TID PRN (Reason: Nausea And Vomiting) Patient Comments: TOME 1 TABLETA POR V A ORAL AJAY VECES AL D A CUANDO SEA NECESARIO PARA LAS N USEAS rosuvastatin 5 mg tablet 5 mg PO QDAY Patient Comments: TOME 1 TABLETA POR V A ORAL TODOS LOS D FOR 90 DAYS ferrous sulfate 325 mg (65 mg iron) tablet 325 mg PO BID furosemide 20 mg tablet 20 mg PO DAILY Patient Comments: TOME IRENE TABLETA TODOS LOS D FOR 30 DAYS Rx Instructions: for 30 days dispense on 06/04/22 dicyclomine 10 mg capsule 10 mg PO BID PRN (Reason: Abdominal cramps) Qty: 14 0RF acetaminophen 500 mg tablet 1,000 mg PO Q6H PRN (Reason: fever or pain) Qty: 30 0RF Referrals: Praful Lopez MD [Primary Care Provider, Family Practice] - In 1 week Problem List Clinical Impression: Upper respiratory infection Patient/Caregiver Discharge Instructions Education Materials: ED URI, Viral, No Abx (Adult) Additional Instructions: Advised Tylenol and/or Motrin as needed for pain reduction or fever reduction. Good hydration and healthy nutrition moving forward. Print Language: Armenian Stand Alone Forms: Carly Award Info., Patient Portal Info Letter
[2025-07-10 03:30] VITALS: BP 125/73; PULSE 70; RESP 16; TEMP 37.1; O2SAT 98
== END 2025-07-10 03:44 | disposition home or self-care (01) ==
PROVIDERS: Physician Assistant; Emergency Provider Emergency Medicine; PCP Family Medicine
DX: J06.9 Acute upper respiratory infection, unspecified (principal); F17.210 Nicotine dependence, cigarettes, uncomplicated
CPT/HCPCS: 36415; 71045; 80053; 81001; 83605; 84484; 85025; 87502; 87635; 96360; 96361; 99283; J7030; A9270